=== PATIENT | male | born 1995 | race Caucasian/White ===

== ENCOUNTER 2019-04-23 12:57 | Emergency (ER) | payer OTHER ==
[~2019-04-23] VITALS: Ht 172.7 cm; Wt 72.6 kg
== END 2019-04-23 18:14 | disposition home or self-care (01) ==
LOC: ER 12:57
DX: B33.8 Other specified viral diseases (principal); B96.0 Mycoplasma pneumoniae [M. pneumoniae] as the cause of diseases classified elsewhere